=== PATIENT | female | born 1980 | race African-American/Black ===

== ENCOUNTER 2017-07-05 06:25 | Emergency (ER) | payer MEDICAID ==
[~2017-07-05] VITALS: Ht 167.6 cm; Wt 49.0 kg
[2017-07-05 07:22] LABS: Urine Bacteria NONE SEEN /hpf (None Seen); Urine Blood Negative /uL (Negative); Urine Specific Gravity 1.007 (1.001-1.035); Urine WBC 1 /hpf (0 - 5)
[2017-07-05] MEDS ORDERED: SODIUM CHLORIDE 0.9% 1,000 ML IV ONE (08:18)
[2017-07-05] MEDS ORDERED: GASTROGRAFIN 120 ML SOL ONE (09:01)
[2017-07-05 13:29] LABS: Basophils # (auto) 0 uL; Basophils % (auto) 0.3 % (0.0-2.0); Eosinophils # (auto) 0 uL; Eosinophils % (auto) 0.3 % (0.0-7.0); Hematocrit 37.8 % (36.0-46.0); Hemoglobin 12.3 g/dL (12.2-16.2); Lymphocytes # (auto) 1.5 uL; Lymphocytes % (auto) 17.7 % (10.0-50.0); Mean Corpuscular Hemoglobin 27.5 pg (28.0-32.0); Mean Corpuscular Hgb Conc. 32.6 g/dL (32.0-36.0); Mean Corpuscular Volume 84.2 fL (80.0-100.0); Monocytes % (auto) 11.2 % (0.0-12.0); Neutrophils # (auto) 6.1 uL; Neutrophils % (auto) 70.5 % (37.0-80.0); Platelet Count (auto) 323 10^3/uL (140-450); Red Blood Cells 4.49 10^6/uL (4.0-5.20); Red Cell Distribution Width 15.8 % (11.8-14.3); White Blood Cell 8.7 10^3/uL (4.4-10.8)
[2017-07-05 13:38] VITALS: BP 127/53
[2017-07-05 13:59] LABS: Albumin 4.4 g/dL (3.4-5.0); Bilirubin, Total 1.1 mg/dL (0.2-1.0); Calcium 9.6 mg/dL (8.5-10.1); Total Protein 8.7 g/dL (6.4-8.2)
== END 2017-07-05 15:02 | disposition home or self-care (01) ==
LOC: ER 06:27
DX: R33.9 Retention of urine, unspecified (principal); Z87.442 Personal history of urinary calculi
CPT/HCPCS: 36415; 51702; 74000; 74176; 74250; 80053; 81001; 81025; 85025; 96360; 96361; 99285; J7030; Q9963

== ENCOUNTER 2017-07-06 08:36 | Emergency (ER) | payer MEDICAID ==
[~2017-07-06] VITALS: Ht 167.6 cm; Wt 49.0 kg
[2017-07-06 12:42] VITALS: BP 125/78
== END 2017-07-06 13:54 | disposition home or self-care (01) ==
LOC: ER 08:36
DX: R33.9 Retention of urine, unspecified (principal); Z46.6 Encounter for fitting and adjustment of urinary device; Z87.442 Personal history of urinary calculi

== ENCOUNTER 2017-07-07 12:51 | Emergency (ER) | payer MEDICAID ==
[~2017-07-07] VITALS: Ht 167.6 cm; Wt 49.0 kg
[2017-07-07 14:05] VITALS: BP 129/93
[2017-07-07] MEDS ORDERED: PHENAZOPYRIDINE HCL 100 MG TAB PO ONE (14:30)
[2017-07-07] MEDS ORDERED: cefTRIAXone SOD 1,000 MG VL IM ONE (14:30)
== END 2017-07-07 15:17 | disposition home or self-care (01) ==
LOC: ER 13:14
DX: N39.0 Urinary tract infection, site not specified (principal)
CPT/HCPCS: 81025; 96372; 99283; J0696